=== PATIENT | female | born 1950 | race Caucasian/White ===

== ENCOUNTER → 2016-08-08 | Outpatient (CLI) | payer BC ==
[~2016-08-08] MED LIST: COUMADIN5 MG PO; COUMADIN6 MG PO
== END ==
LOC: MC.RAD 07:20
DX: Z12.31 Encounter for screening mammogram for malignant neoplasm of breast (principal)

== ENCOUNTER → 2017-05-11 | Outpatient (CLI) | payer BC | LOC: MC.RAD 05-07 08:20 | DX: Z12.31 Encounter for screening mammogram for malignant neoplasm of breast (principal) ==

== ENCOUNTER 2017-11-24 08:56 | Emergency (ER) | payer MEDICARE, BC ==
[~2017-11-24] VITALS: Ht 157.5 cm; Wt 68.2 kg
[2017-11-24 08:59] VITALS: TEMP 98
[2017-11-24 09:46] LABS: BASO # 0.1 (0.0-0.2); BASO % 0.5 % (0.0-2.0); EOS # 0.1 (0.0-0.7); EOS % 1.1 % (0-4.0); GRAN % 58.6 % (42.2-75.2); HEMATOCRIT 46.4 % (37.0-47.0); HEMOGLOBIN 15.8 g/dl (12.5-16.0); LYMPH # 3.1 (1.2-3.4); LYMPH % 30.9 % (20.0-51.0); MEAN CELL VOLUME 94 fl (80.0-100.0); MEAN CORPUSCULAR HEMOGLOBIN 32 pg (27.0-31.0); MEAN CORPUSCULAR HGB CONC 34 g/dl (33.0-37.0); MEAN PLATELET VOLUME 10.4 fl (7.4-10.4); MONO # 0.9 (0.1-0.6); MONO % 8.6 % (1.7-9.3); PLATELET COUNT 229 K/mm3 (130-400); RED BLOOD COUNT 4.96 M/mm3 (4.10-5.30); REDCELL DISTRIBUTION WIDTH-CV 12.8 % (11.5-14.5)
[2017-11-24 09:51] LABS: INR 2.7 (0.8-3.0); PROTHROMBIN TIME 30.5 SECONDS (9.7-12.8)
[2017-11-24] MEDS ORDERED: COUMADIN 22.5 MG/TAB PO (09:51)
[2017-11-24] MEDS ORDERED: COUMADIN 5MG5 MG/TAB PO (09:51)
[2017-11-24 09:54] LABS: ALANINE AMINOTRANSFERASE 37 U/L (9-52); ALBUMIN 4.4 gm/dL (3.5-5.0); ALKALINE PHOSPHATASE 105 U/L (50-136); ANION GAP 12 mmol/L (7-16); AST,SGOT 33 U/L (15-37); BILIRUBIN,TOTAL 0.7 mg/dL (0.0-1.0); BLOOD UREA NITROGEN 15 mg/dL (7-17); CALCIUM 9.5 mg/dL (8.4-10.2); CARBON DIOXIDE 30 mmol/L (22-30); CHLORIDE 99 mmol/L (98-107); CREATININE, serum 0.74 mg/dL (0.52-1.25); GLUCOSE 99 mg/dL (74-106); LIPASE 88 U/L (23-300); POTASSIUM 3.7 mmol/L (3.4-5.0); SODIUM 141 mmol/L (137-145)
[2017-11-24 10:06] LABS: TROPONIN-I < 0.012 ng/mL (0.000-0.034)
[2017-11-24 10:13] LABS: COLLECTION METHOD CLEAN CATCH
[2017-11-24 10:19] LABS: MUCOUS Present /lpf; PH 5 (5-8); SQUAMOUS EPITHELIAL None Seen /hpf; URINE APPEARANCE Clear; URINE BACTERIA None Seen /hpf; URINE BILIRUBIN Negative (NEGATIVE); URINE BLOOD 1+ (NEGATIVE); URINE COLOR Yellow; URINE GLUCOSE Negative (NEGATIVE); URINE KETONE Negative (NEGATIVE); URINE LEUKOCYTE ESTERASE Negative (NEGATIVE); URINE NITRATE Negative (NEGATIVE); URINE PROTEIN(semi-quant) Negative (NEGATIVE); URINE RBC 0-2 /hpf; URINE UROBILINOGEN Negative (NEGATIVE)
[2017-11-24] MEDS ORDERED: PROTONIX 40MG T40 MG PO (14:24)
[2017-11-24] MEDS ORDERED: LIPITOR20 MG PO (14:37)
[2017-11-24 14:54] VITALS: BP 113/77; PULSE 79
== END 2017-11-24 14:55 | disposition home or self-care (01) ==
LOC: COL.ER 08:56
PROVIDERS: Nurse Practitioner
DX: R07.9 Chest pain, unspecified (principal); E78.5 Hyperlipidemia, unspecified; Z86.711 Personal history of pulmonary embolism; Z90.49 Acquired absence of other specified parts of digestive tract; Z79.01 Long term (current) use of anticoagulants; Z79.82 Long term (current) use of aspirin
CPT/HCPCS: Q9967

== ENCOUNTER → 2017-11-25 | Outpatient (CLI) | payer MEDICARE, BC ==
[~2017-11-25] VITALS: Ht 157.5 cm; Wt 69.5 kg
[~2017-11-25] MED LIST changes: +COUMADIN 22.5 MG/TAB PO; +COUMADIN 5MG5 MG/TAB PO; +LIPITOR20 MG PO; +PROTONIX 40MG T40 MG PO
[2017-11-25 06:22] VITALS: BP 131/81; PULSE 82
[2017-11-25 07:41] VITALS: BP 113/70; PULSE 86
[2017-11-25 07:44] VITALS: BP 119/64; PULSE 112
[2017-11-25 07:45] VITALS: BP 118/64; PULSE 114
[2017-11-25 07:46] VITALS: BP 117/62; PULSE 109
[2017-11-25 07:48] VITALS: BP 114/61; PULSE 99
== END ==
LOC: COL.CARD 06:07
DX: R07.9 Chest pain, unspecified (principal)
CPT/HCPCS: A9502; J2785

== ENCOUNTER 2017-12-04 06:31 | Day surgery (SDC) | payer MEDICARE, BC ==
[~2017-12-04] VITALS: Ht 157.5 cm; Wt 67.3 kg
[2017-12-04] VITALS (9 sets, daily range): BP systolic 109–131; BP diastolic 63–79; PULSE 52–75; TEMP 98.2
[2017-12-04] MEDS ORDERED: PROTONIX 40MG T40 MG PO ×2 (07:15→10:08)
[2017-12-04] MEDS ORDERED: LOVENOX 6060 MG/0.6 SQ ×3 (07:17→10:14)
[2017-12-04] MEDS ORDERED: FLEXERIL5 MG PO (07:18)
[2017-12-04 07:53] LABS: HEMATOCRIT 42.5 % (37.0-47.0); HEMOGLOBIN 14.4 g/dl (12.5-16.0); MEAN CELL VOLUME 92 fl (80.0-100.0); MEAN CORPUSCULAR HEMOGLOBIN 31 pg (27.0-31.0); MEAN CORPUSCULAR HGB CONC 34 g/dl (33.0-37.0); MEAN PLATELET VOLUME 10.3 fl (7.4-10.4); PLATELET COUNT 196 K/mm3 (130-400); RED BLOOD COUNT 4.62 M/mm3 (4.10-5.30); REDCELL DISTRIBUTION WIDTH-CV 12.3 % (11.5-14.5)
[2017-12-04 07:55] LABS: PROTHROMBIN TIME 11.7 SECONDS (9.7-12.8)
[2017-12-04 07:59] LABS: CALCIUM 9.3 mg/dL (8.4-10.2); CREATININE, serum 0.75 mg/dL (0.52-1.25); POTASSIUM 3.8 mmol/L (3.4-5.0)
== END 2017-12-04 12:30 | disposition home or self-care (01) ==
LOC: COL.CAR 06:31
PROVIDERS: Internal Medicine Cardiovascular Disease
DX: R94.39 Abnormal result of other cardiovascular function study (principal); R07.89 Other chest pain; Z90.710 Acquired absence of both cervix and uterus; Z79.01 Long term (current) use of anticoagulants; Z86.711 Personal history of pulmonary embolism; Z82.49 Family history of ischemic heart disease and other diseases of the circulatory system; Z80.0 Family history of malignant neoplasm of digestive organs; Z83.3 Family history of diabetes mellitus; Z81.8 Family history of other mental and behavioral disorders
CPT/HCPCS: C1769; C1887; J1644; J2250; J3010; Q9967

== ENCOUNTER → 2018-05-13 | Outpatient (CLI) | payer MEDICARE, BC ==
[~2018-05-13] MED LIST changes: +FLEXERIL5 MG PO; +LOVENOX 6060 MG/0.6 SQ
== END ==
LOC: MC.RAD 07:18
DX: Z12.31 Encounter for screening mammogram for malignant neoplasm of breast (principal)

== ENCOUNTER → 2020-05-16 | Outpatient (CLI) | payer MEDICARE, BC | LOC: MC.RAD 07:30 | DX: Z12.31 Encounter for screening mammogram for malignant neoplasm of breast (principal) ==

== ENCOUNTER → 2022-01-09 | Outpatient (CLI) | payer MEDICARE, BC | LOC: MC.RAD 10:55 | DX: R92.8 Other abnormal and inconclusive findings on diagnostic imaging of breast (principal); N64.4 Mastodynia ==

== ENCOUNTER → 2023-12-16 | Outpatient (CLI) | payer MEDICARE | LOC: MC.RAD 11:08 | DX: Z12.31 Encounter for screening mammogram for malignant neoplasm of breast (principal) ==